=== PATIENT | female | born 1985 | race Caucasian/White ===

== ENCOUNTER 2017-02-24 08:49 | Emergency (ER) | payer OTHER ==
[~2017-02-24] VITALS: Ht 149.9 cm; Wt 81.7 kg
[2017-02-24] MEDS ORDERED: ATORVASTATIN CA40 MG PO (10:06)
[2017-02-24] MEDS ORDERED: DDAVP0.2 MG PO (10:08)
[2017-02-24] MEDS ORDERED: ZOVIA 1-50E1 EACH PO (10:08)
[2017-02-24] MEDS ORDERED: LEVOTHYROXINE0.2 M1 PO (10:08)
[2017-02-24] MEDS ORDERED: EVISTA PO (10:09)
[2017-02-24] MEDS ORDERED: NORCO 5-325 TA1 EACH PO (13:03)
[2017-02-24] MEDS ORDERED: PROMS25 WY RECTAL (13:03)
[2017-02-24 13:23] VITALS: BP 116/77
== END 2017-02-24 13:24 | disposition home or self-care (01) ==
LOC: ER 08:49
DX: J32.8 Other chronic sinusitis (principal); J06.9 Acute upper respiratory infection, unspecified; I67.1 Cerebral aneurysm, nonruptured; Z85.841 Personal history of malignant neoplasm of brain; G43.909 Migraine, unspecified, not intractable, without status migrainosus; E03.9 Hypothyroidism, unspecified; J45.909 Unspecified asthma, uncomplicated; Z91.040 Latex allergy status; Z88.2 Allergy status to sulfonamides

== ENCOUNTER 2017-03-11 04:18 | Emergency (ER) | payer OTHER ==
[~2017-03-11] VITALS: Ht 149.9 cm; Wt 83.9 kg
[~2017-03-11 04:18] MED LIST: ATORVASTATIN CA40 MG PO; DDAVP0.2 MG PO; EVISTA PO; LEVOTHYROXINE0.2 M1 PO; NORCO 5-325 TA1 EACH PO; PROMS25 WY RECTAL; ZOVIA 1-50E1 EACH PO
[2017-03-11 04:58] LABS: ABSOLUTE NEUTROPHILS 6.5 thou/uL (1.4-8.2); BASOPHILS 0.5 % (0.0-2.0); EOSINOPHILS 2.5 % (0.0-3.0); LYMPHOCYTES 21.7 % (24.0-44.0); MCHC 34.2 g/dL (28.0-37.0); MCV 87.7 fL (80.0-100.0); MONOCYTES 8.3 % (1.0-8.0); PLATELET COUNT 275 thou/uL (150-400); RBC 4.68 mil/uL (4.20-5.00); RDW 12.5 % (10.5-14.5); WBC 9.7 thou/uL (4.0-11.0)
[2017-03-11 05:05] LABS: CALCIUM 10.2 mg/dL (8.5-10.1); POTASSIUM 3.9 mmol/L (3.5-5.1)
[2017-03-11 05:09] LABS: URIC ACID* 7.6 mg/dL (2.6-7.2)
[2017-03-11 05:15] LABS: MANUAL DIFF NO
[2017-03-11] MEDS ORDERED: INDOMETHACIN 2525 MG PO (05:36)
[2017-03-11] MEDS ORDERED: COLCHICINE0.6 MG PO (05:36)
[2017-03-11] MEDS ORDERED: NORCO 5-325 TA1 EACH PO (05:36)
[2017-03-11 06:03] VITALS: BP 123/85
== END 2017-03-11 05:37 | disposition home or self-care (01) ==
LOC: ER 04:18
PROVIDERS: Emergency Medicine
DX: M10.9 Gout, unspecified (principal); E03.9 Hypothyroidism, unspecified; E23.2 Diabetes insipidus; J45.909 Unspecified asthma, uncomplicated; Z91.040 Latex allergy status; Z88.2 Allergy status to sulfonamides

== ENCOUNTER 2017-03-15 17:02 | Emergency (ER) | payer OTHER ==
[~2017-03-15] VITALS: Ht 149.9 cm; Wt 81.7 kg
[~2017-03-15 17:02] MED LIST changes: +COLCHICINE0.6 MG PO; +INDOMETHACIN 2525 MG PO
[2017-03-15] MEDS ORDERED: NORCO 5-325 TA1 EACH PO (19:57)
[2017-03-15] MEDS ORDERED: INDOMETHACIN 2525 MG PO (20:06)
[2017-03-15 20:20] VITALS: BP 129/81
== END 2017-03-15 20:21 | disposition home or self-care (01) ==
LOC: ER 17:02
DX: M10.072 Idiopathic gout, left ankle and foot (principal); E03.9 Hypothyroidism, unspecified; E10.8 Type 1 diabetes mellitus with unspecified complications; J45.909 Unspecified asthma, uncomplicated; M81.0 Age-related osteoporosis without current pathological fracture; I67.1 Cerebral aneurysm, nonruptured; Z91.040 Latex allergy status; Z88.2 Allergy status to sulfonamides

== ENCOUNTER → 2017-07-24 | Outpatient (CLI) | payer OTHER | LOC: CAT 08:49 | DX: I72.0 Aneurysm of carotid artery (principal); G91.9 Hydrocephalus, unspecified ==

== ENCOUNTER 2019-06-23 02:52 | Emergency (ER) | payer OTHER ==
[~2019-06-23] VITALS: Ht 160 cm; Wt 90.7 kg
--- NOTE | ~2019-06-23 | EMS ---
[facility] [address] [place] [address] EMS Patient Care Report Name: LANDEN VÁZQUEZ Room #: DEP Kelly#: [id number] Admission: 06/23/19 ������������������ Attend Phys: Discharge: 06/23/19 ������������������ Date of : 81 Report #: [id number] THIS REPORT FOR: //name// Report Transmitted: 06/23/2019 03:49 EMS Care Summary [place], [place]/[facility] Incident [id number] @ 06/23/2019 02:15 Incident Location [address] [place] [address] Patient LANDEN VÁZQUEZ Female, 33 Years 1985 Patient Address [address] [place] [address] Patient History Other, Patient Allergies Latex allergy,Sulfa, Chief Complaint headache Disposition Transported No Lights/Home Dispatch Reason Unconscious/Fainting Transported To [facility] Narrative S: 33 yo female woke up with severe headache and vomiting around 0145. She has experienced a headache throughout the day. The pts family was going to bring her POV, but she was having synopal episodes and he was unable to get her to the car. The pt has an inoperable brain aneurysm, but hasn't had any [facility] [address] [place] [address] EMS Patient Care Report Name: LANDEN VÁZQUEZ Room #: DEP ER Kelly#: [id number] Admission: 06/23/19 ������������������ Attend Phys: Discharge: 06/23/19 ������������������ Date of : 81 Report #: [id number] complications for the past year. Upon our arrival the pt was alert and oriented x 3, complaining of a headache. + weakness. + N/V. no chest pain. no sob. no abd pain. + dizziness. She does not express any other complaints at this time. O: gcs- 15 decreased to 3 as we went into the hospital, no obvious resp distress noted. ECG- SR. Head- severe pain. The pt did not have any more vomiting with us. As we were getting her out of the ambulance her head pain increased and she became unresponsive. Her HR became bradycardic with PVC's noted. The pt remained unresponsive and developed snoring respirations as we went into the hospital. A: headache, brain aneurysm P: vs, oxygen, ecg, saline lock attempted- failed. Pt transported to [facility]. no other changes. Initial Vitals @02:44P: 40,R: 10,Pain: 0/10,GCS: 3,CO: 5,SpO2: 100, @02:36P: 79,R: 16,BP: 157/102,Pain: 10/10,GCS: 15,SpO2: 88,Revised Trauma: 12,[place] Suspected: false Assessments @02:30MENTAL:No Abnormalities,SKIN:HEENT:Head/Face: No Abnormalities,Eyes: No Abnormalities,Neck/Airway: No Abnormalities,LUNG SOUNDS:General: Vomiting,General: Nausea,ABDOMEN:General: Vomiting,General: Nausea,PELVIS//GI:No Abnormalities,EXTREMITIES:Left Arm: No Abnormalities,Right Arm: No Abnormalities,Left Leg: No Abnormalities,Right Leg: No Abnormalities,PULSE:NEURO:No Abnormalities,@02:45MENTAL:Unresponsive,SKIN:No Abnormalities,HEENT:Head/Face: No Abnormalities,Eyes: No Abnormalities,Neck/Airway: No Abnormalities,LUNG SOUNDS:General: No Abnormalities,ABDOMEN:General: No Abnormalities,PELVIS//GI:EXTREMITIES:PULSE:NEURO: Impression Headache Procedures @02:30ALS AssessmentResponse: UnchangedSucceeded@02:303-Lead ECGResponse: UnchangedSucceeded@02:45Saline Lock 0cc (20 ga) Site: Hand-LeftResponse: UnchangedFailed@02:35Oxygen FlowRate: 4 Device: Nasal Cannula (NC) Response: ImprovedSucceeded Timeline 02:12,Call Received 02:12,Dispatch Notified 02:15,Dispatched 02:17,En Route 02:24,On Scene 02:26,[place] [address] EMS Patient Care Report Name: LANDEN VÁZQUEZ Room #: DEP VANESSA Mendoza#: [id number] Admission: 06/23/19 ������������������ Attend Phys: Discharge: 06/23/19 ������������������ Date of : 81 Report #: [id number] 02:30,ALS Assessment,Response: UnchangedSucceeded, 02:30,3-Lead ECG,Response: UnchangedSucceeded, 02:35,Oxygen FlowRate: 4 Device: Nasal Cannula (NC) Response: ImprovedSucceeded, 02:36,BP: 157/102 M,PULSE: 79,RR: 16 R,SPO2: 88 Ox,ETCO2: ,BG: ,PAIN: 10,GCS: 15, 02:38,Depart Scene 02:44,BP: / M,PULSE: 40,RR: 10 R,SPO2: 100 Ox,ETCO2: ,BG: ,PAIN: 0,GCS: 3, 02:44,At Destination 02:45,Saline Lock 0cc 20 ga Site: Hand-Left,Response: UnchangedFailed, 03:23,Call Closed Disclaimer v1.1 Copyright 2019 [employer] This EMS Care Summary contains data elements from the applicable legal record (which may be displayed differently). It is designed to provide pertinent information for the following purposes: continuity of care, clinical quality, and state data reporting. The complete legal record is available to ED staff and administrators of the receiving hospital in [employer]'s Patient Tracker. All data is provided "as is."
--- NOTE | ~2019-06-23 | EMS ---
[facility] [address] [place] [address] EMS Patient Care Report Name: LANDEN VÁZQUEZ Room #: PRE M.R.#: [id number] Admission: ������������������ Attend Phys: Discharge: ������������������ Date of : 81 Report #: [id number] THIS REPORT FOR: //name// Report Transmitted: 06/23/2019 02:45 EMS Care Summary [place], [place]/[facility] Incident [id number] @ 06/23/2019 02:15 Incident Location [address] [place] [address] Patient LANDEN VÁZQUEZ Female, 33 Years 1985 Patient Address [address] [place] [address] Patient History Other, Patient Allergies Latex allergy,Sulfa, Chief Complaint headache Disposition Transported No Lights/[place] Dispatch Reason Unconscious/Fainting Transported To [facility] Narrative S: 33 yo female woke up with severe headache and vomiting around 0145. She has experienced a headache throughout the day. The pts family was going to bring her POV, but she was having synopal episodes and he was unable to get her to the car. The pt has an inoperable brain aneurysm, but hasn't had any [facility] [address] [place] [address] EMS Patient Care Report Name: LANDEN VÁZQUEZ Room #: [facility] Charbel.#: [id number] Admission: ������������������ Attend Phys: Discharge: ������������������ Date of : 81 Report #: [id number] complications for the past year. Upon our arrival the pt was alert and oriented x 3, complaining of a headache. + weakness. + N/V. no chest pain. no sob. no abd pain. + dizziness. She does not express any other complaints at this time. O: gcs- 15 decreased to 3 as we went into the hospital, no obvious resp distress noted. ECG- SR. Head- severe pain. The pt did not have any more vomiting with us. As we were getting her out of the ambulance her head pain increased and she became unresponsive. Her HR became bradycardic with PVC's noted. The pt remained unresponsive and developed snoring respirations as we went into the hospital. A: headache, brain aneurysm P: vs, oxygen, ecg, saline lock attempted- failed. Pt transported to [facility]. no other changes. Initial Vitals @02:44P: 40,R: 10,Pain: 0/10,GCS: 3,CO: 5,SpO2: 100, @02:36P: 79,R: 16,BP: 157/102,Pain: 10/10,GCS: 15,SpO2: 88,Revised Trauma: 12,[place] Suspected: false Assessments @02:30MENTAL:No Abnormalities,SKIN:HEENT:Head/Face: No Abnormalities,Eyes: No Abnormalities,Neck/Airway: No Abnormalities,LUNG SOUNDS:General: Vomiting,General: Nausea,ABDOMEN:General: Vomiting,General: Nausea,PELVIS//GI:No Abnormalities,EXTREMITIES:Left Arm: No Abnormalities,Right Arm: No Abnormalities,Left Leg: No Abnormalities,Right Leg: No Abnormalities,PULSE:NEURO:No Abnormalities,@02:45MENTAL:Unresponsive,SKIN:No Abnormalities,HEENT:Head/Face: No Abnormalities,Eyes: No Abnormalities,Neck/Airway: No Abnormalities,LUNG SOUNDS:General: No Abnormalities,ABDOMEN:General: No Abnormalities,PELVIS//GI:EXTREMITIES:PULSE:NEURO: Impression Headache Procedures @02:30ALS AssessmentResponse: UnchangedSucceeded@02:303-Lead ECGResponse: UnchangedSucceeded@02:45Saline Lock 0cc (20 ga) Site: Hand-LeftResponse: UnchangedFailed@02:35Oxygen FlowRate: 4 Device: Nasal Cannula (NC) Response: ImprovedSucceeded Timeline 02:12,Call Received 02:12,Dispatch Notified 02:15,Dispatched 02:17,En Route 02:24,On Scene 02:26,[place] [address] EMS Patient Care Report Name: LANDEN VÁZQUEZ Room #: [facility] M.R.#: [id number] Admission: ������������������ Attend Phys: Discharge: ������������������ Date of : 81 Report #: [id number] 02:30,ALS Assessment,Response: UnchangedSucceeded, 02:30,3-Lead ECG,Response: UnchangedSucceeded, 02:35,Oxygen FlowRate: 4 Device: Nasal Cannula (NC) Response: ImprovedSucceeded, 02:36,BP: 157/102 M,PULSE: 79,RR: 16 R,SPO2: 88 Ox,ETCO2: ,BG: ,PAIN: 10,GCS: 15, 02:38,Depart Scene 02:44,BP: / M,PULSE: 40,RR: 10 R,SPO2: 100 Ox,ETCO2: ,BG: ,PAIN: 0,GCS: 3, 02:44,At Destination 02:45,Saline Lock 0cc 20 ga Site: Hand-Left,Response: UnchangedFailed, 03:23,Call Closed Disclaimer v1.1 Copyright 2019 [employer] This EMS Care Summary contains data elements from the applicable legal record (which may be displayed differently). It is designed to provide pertinent information for the following purposes: continuity of care, clinical quality, and state data reporting. The complete legal record is available to ED staff and administrators of the receiving hospital in [employer]'s Patient Tracker. All data is provided "as is."
[2019-06-23 03:24] LABS: HEMATOCRIT 39.3 % (37.0-47.0); HEMOGLOBIN 12.9 gm/dL (12.0-15.0); MCHC 32.8 g/dL (28.0-37.0); MCV 91.5 fL (80.0-100.0); RBC 4.29 mil/uL (4.20-5.00); RDW 13.4 % (10.5-14.5); WBC 8.9 thou/uL (4.0-11.0)
[2019-06-23 03:26] LABS: APTT 27.6 Seconds (24.5-32.8); PROTIME 10.7 Seconds (9.3-11.4)
[2019-06-23 03:36] LABS: BE(vivo) 1.5 mmol/L (-2 to +3); HCO3 26.8 mmol/L (22.0-26.0); PCO2 44.6 mmHg (35.0-45.0); PO2 218.1 mmHg (80.0-100.0); pH 7.396 (7.360-7.450); sO2 99.4 % (92.0-98.0)
[2019-06-23 03:40] LABS: ANION GAP 10 mmol/L (7-16); BUN 15 mg/dL (7-18); CHLORIDE 95 mmol/L (98-107); CO2 29 mmol/L (21-32); CREATININE 1.1 mg/dL (0.6-1.0); GLUCOSE 225 mg/dL (74-106); POTASSIUM 3.5 mmol/L (3.5-5.1); SODIUM 134 mmol/L (136-145)
[2019-06-23 03:48] LABS: TROPONIN-I <0.06 ng/mL (<0.06)
[2019-06-23 04:36] VITALS: BP 139/91
[2019-06-23] MEDS ORDERED: FOLIC ACID1 MG PO (05:06)
[2019-06-23] MEDS ORDERED: SINGULAIR 10 MG10 M1 PO (05:06)
[2019-06-23] MEDS ORDERED: ALLOPURINOL 10100 M1 PO (05:06)
--- NOTE | 2019-06-23 16:39 | EKG ---
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1985 Requested By: Fred Wright Order Number: [id number] MD: Hilario Arreola Measurements Intervals [place] Rate: 71 P: LA: QRS: 124 QRSD: 112 T: 100 QT: 464 QTc: 505 Interpretive Statements Normal sinus rhythmn No previous ECG available for comparison Electronically Signed On 06-23-2019 16:38:53 CDT by Hilario Arreola [email or web address] ��������������������������������������������� <ELECTRONICALLY SIGNED> ���������������������������������������� By: Hilario Arreola MD ��������������������������������������������� 06/23/19 [id number] [phone] Hilario Arreola MD /LISA
== END 2019-06-23 04:38 | disposition short-term general hospital (02) ==
LOC: ER 02:52
PROVIDERS: Emergency Medicine
DX: I60.9 Nontraumatic subarachnoid hemorrhage, unspecified (principal); J45.909 Unspecified asthma, uncomplicated; G43.909 Migraine, unspecified, not intractable, without status migrainosus; E03.9 Hypothyroidism, unspecified; M81.0 Age-related osteoporosis without current pathological fracture; Z86.011 Personal history of benign neoplasm of the brain; Z88.2 Allergy status to sulfonamides; Z91.040 Latex allergy status